=== PATIENT | female | born 1980 | race Caucasian/White ===

== ENCOUNTER 2022-02-18 22:55 | Emergency (ER) | payer BC ==
[~2022-02-18] VITALS: Ht 172.7 cm; Wt 68.0 kg
--- NOTE | 2022-02-18 23:07 | NUR ---
Patient walked to the ER with steady gait. NAD noted.
[2022-02-18] MEDS ORDERED: CYCLOBENZAPRINE HCL 10 MG TABLET ONE (23:24)
[2022-02-18] MEDS ORDERED: CYCLOBENZAPRINE HCL 10 MG TABLET PO ONE (23:30)
[2022-02-18] MEDS ORDERED: KETOROLAC TROMETHAMINE 30 MG INJ ONE (23:49)
[2022-02-19] MEDS ORDERED: KETOROLAC TROMETHAMINE 30 MG INJ IM ONE
[2022-02-19] MEDS ORDERED: CYCL10TA9 PO (00:08)
--- NOTE | 2022-02-19 00:35 | NUR ---
Patient discharged to home in stable condition. Written and verbal after care instructions given. Patient verbalizes understanding of instructions. Stressed follow up or return to ER for worsening s/s. Patient is a/ox4, NAD noted. Patient is able to walk with steady gait, accompanied by SO
[2022-02-19 00:59] VITALS: BP 123/68
== END 2022-02-19 00:35 | disposition home or self-care (01) ==
LOC: ER 23:08
DX: M62.830 Muscle spasm of back (principal); S16.1XXA Strain of muscle, fascia and tendon at neck level, initial encounter; V49.9XXA Car occupant (driver) (passenger) injured in unspecified traffic accident, initial encounter; Y92.89 Other specified places as the place of occurrence of the external cause
CPT/HCPCS: 71045; 72072; 96372; 99284; J1885; A4663